=== PATIENT | male | born 2000 | race Two or more races ===

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

== ENCOUNTER 2020-02-18 20:06 | Emergency (ER) | payer SELFPAY ==
[~2020-02-18] VITALS: Ht 175.3 cm; Wt 113.1 kg
[~2020-02-18 20:06] MED LIST changes: +AMOX1TAB61 PO; +IBUP-1007 PO
[2020-02-18] MEDS ORDERED: ADENOSINE 6 MG/2 ML VIAL. IV ONE ×4 (20:12→20:45)
[2020-02-18] MEDS ORDERED: IV NORMAL SALINE 1000ML BAG 1,000 ML IV SCH (20:13)
[2020-02-18] MEDS ORDERED: dilTIAZem IV PUSH 25 MG/5 ML VIAL ONE (20:22)
--- NOTE | 2020-02-18 20:22 | PHYS DOC ---
Past Medical History Past Medical History: Anxiety Past Surgical History: Other Additional Past Surgical Histo: leasion reomoval Smoking Status: Former Smoker Alcohol Use: Occasionally Drug Use: Marijuana General Adult EDM: Chief Complaint: SVT HPI: HPI: Patient is a 19 year old male who presents via EMS with complaint of severe palpitations after taking hit of drugs. Patient states that he feels like he has a panic attack. He denies any actual chest pain. He denies any nausea or vomiting. Patient states that symptoms started approximately 20 minutes ago immediately after taking the head of the drugs that he had taken. [] Review of Systems: Review of Systems: Constitutional: Denies fever or chills. [] Respiratory: Denies cough or shortness of breath. [] Cardiovascular: Complains of palpitations. [] GI: Denies abdominal pain, nausea, vomiting, bloody stools or diarrhea. [] Neurologic: Denies headache, focal weakness or sensory changes. [] Psychiatric: Complains of anxiety. [] Heart Score: Risk Factors: Risk Factors: DM, Current or recent (<one month) smoker, HTN, HLP, family history of CAD, obesity. Risk Scores: Score 0 - 3: 2.5% MACE over next 6 weeks - Discharge Home Score 4 - 6: 20.3% MACE over next 6 weeks - Admit for Clinical Observation Score 7 - 10: 72.7% MACE over next 6 weeks - Early Invasive Strategies Current Medications: Current Medications Medications (Trade) Dose Ordered Sig/Bolivar Start Time Stop Time Status Last Admin Dose Admin Adenosine (Adenocard) 6 mg STK-MED ONCE 02/18/20 20:17 02/18/20 20:18 DC Sodium Chloride 1,000 ml @ 1,000 mls/hr Q1H 02/18/20 20:13 02/18/20 21:12 Allergies: Allergies: Allergies Coded Allergies Type Severity Reaction Last Updated Verified No Known Drug Allergies 12/06/13 No Physical Exam: PE: Constitutional: Well developed, well nourished, no acute distress, non-toxic appearance. [] HENT: Normocephalic, atraumatic, bilateral external ears normal, oropharynx moist, no oral exudates, nose normal. [] Eyes: PERRLA, EOMI, conjunctiva normal, no discharge. [] Neck: Normal range of motion, no tenderness, supple, no stridor. [] Cardiovascular:Heart rate regular rhythm, no murmur [] Lungs & Thorax: Bilateral breath sounds clear to auscultation [] Abdomen: Bowel sounds normal, soft, no tenderness, no masses, no pulsatile m asses. [] Skin: Warm, dry, no erythema, no rash. [] Back: No tenderness, no CVA tenderness. [] Extremities: No tenderness, no cyanosis, no clubbing, ROM intact, no edema. [] Neurologic: Alert and oriented X 3, normal motor function, normal sensory function, no focal deficits noted. [] Psychologic: Affect normal, judgement normal, mood normal. [] EKG: EKG: [] Radiology/Procedures: Radiology/Procedures: [] Course & Med Decision Making: Course & Med Decision Making Pertinent Labs and Imaging studies reviewed. (See chart for details) [] Dragon Disclaimer: Dragon Disclaimer: This electronic medical record was generated, in whole or in part, using a voice recognition dictation system. Departure Departure Impression: Primary Impression: Drug abuse Additional Impression: SVT (supraventricular tachycardia) Disposition: 01 HOME, SELF-CARE Condition: STABLE Referrals: NO PCP (PCP) Patient Instructions: Marijuana Abuse-Brief, Supraventricular Tachycardia Justicifation of Admission Dx: Justifications for Admission: Justification of Admission Dx: Comment: (Not applicable) MARY LOU WHITT Jr. DO Feb 18, 2020 20:21
[2020-02-18 20:24] LABS: BASO # 0.1 x10^3/uL (0.0-0.2); BASO % 1 % (0-3); EOS # 0.2 x10^3/uL (0.0-0.7); EOS % 2 % (0-3); HEMATOCRIT 48.2 % (39.0-53.0); LYMPH # 4.4 x10^3/uL (1.0-4.8); LYMPH % 35 % (24-48); MEAN CORPUSCULAR HEMOGLOBIN 30 pg (25-35); MEAN CORPUSCULAR HGB CONC 35 g/dL (31-37); MEAN CORPUSCULAR VOLUME 85 fL (79-100); MONO # 0.9 x10^3/uL (0.0-1.1); MONO % 7 % (0-9); NEUT # 7.1 x10^3/uL (1.8-7.7); NEUT % 56 % (31-73); PLATELET COUNT 318 x10^3/uL (140-400); RED BLOOD COUNT 5.65 x10^6/uL (4.30-5.70); RED CELL DISTRIBUTION WIDTH 12.9 % (11.5-14.5); WHITE BLOOD COUNT 12.8 x10^3/uL (4.0-11.0)
[2020-02-18 20:38] LABS: ALBUMIN 4.5 g/dL (3.4-5.0); ALBUMIN/GLOBULIN RATIO 1.2 (1.0-1.7); CALCIUM 9.3 mg/dL (8.5-10.1); CREATININE 1.4 mg/dL (0.7-1.3); GFR 65.3; MAGNESIUM 1.8 mg/dL (1.8-2.4); TOTAL BILIRUBIN 2.3 mg/dL (0.2-1.0); TOTAL PROTEIN 8.4 g/dL (6.4-8.2)
[2020-02-18 20:40] LABS: POTASSIUM 2.9 mmol/L (3.5-5.1)
[2020-02-18] MEDS ORDERED: dilTIAZem IV PUSH 25 MG/5 ML VIAL IVP ONE (21:00)
[2020-02-18 21:14] LABS: BILIRUBIN,URINE SMALL (NEG); CLARITY,URINE CLEAR; COLOR,URINE AMBER; NITRITE,URINE NEGATIVE (NEG); PH,URINE 5.5 (<5.0-8.0); PROTEIN,URINE 30 mg/dL (NEG-TRACE)
[2020-02-18 21:19] LABS: BARBITURATES NEG (NEG); BENZODIAZEPINES NEG (NEG); CANNABINOIDS POS (NEG); COCAINE NEG (NEG); METHADONE NEG (NEG); OPIATES NEG (NEG); PHENCYCLIDINE NEG (NEG)
[2020-02-18 21:20] LABS: AMPHETAMINE/METHAMPHETAMINE NEG (NEG); SQUAMOUS EPITHELIAL CELL,UR OCC /LPF
[2020-02-18 21:21] LABS: AMORPHOUS SEDIMENT,UR PRESENT /HPF; BACTERIA,URINE 0 /HPF (0-FEW); GRANULAR CASTS,URINE OCCASIONAL /HPF; HYALINE CASTS, URINE FEW /HPF; RBC,URINE 0 /HPF (0-2); WBC,URINE OCC /HPF (0-4)
[2020-02-18] MEDS ORDERED: POTASSIUM CHLORIDE 20 MEQ TABLET.ER. PO ONE (21:45)
[2020-02-18] MEDS ORDERED: IV NORMAL SALINE 1000ML BAG 1,000 ML IV ONE (22:30)
[2020-02-18 22:46] VITALS: BP 101/53
--- NOTE | 2020-02-19 06:22 | EKG ---
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
== END 2020-02-18 22:59 | disposition home or self-care (01) ==
LOC: ER 20:06
DX: I47.1 Supraventricular tachycardia (principal); R00.2 Palpitations; F41.9 Anxiety disorder, unspecified; F12.10 Cannabis abuse, uncomplicated; Z87.891 Personal history of nicotine dependence; Z98.890 Other specified postprocedural states
CPT/HCPCS: 36415; 80053; 80307; 81001; 83735; 85025; 93005; 99284; J7030

== ENCOUNTER 2020-04-24 21:25 | Emergency (ER) | payer SELFPAY ==
[~2020-04-24] VITALS: Ht 175.3 cm; Wt 113.6 kg
[2020-04-24 22:38] LABS: BASO % 0 % (0-3); EOS # 0.1 x10^3/uL (0.0-0.7); EOS % 1 % (0-3); HEMOGLOBIN 17.8 g/dL (13.0-17.5); LYMPH # 1.3 x10^3/uL (1.0-4.8); LYMPH % 11 % (24-48); MEAN CORPUSCULAR HEMOGLOBIN 30 pg (25-35); MEAN CORPUSCULAR HGB CONC 36 g/dL (31-37); MEAN CORPUSCULAR VOLUME 85 fL (79-100); MONO # 0.7 x10^3/uL (0.0-1.1); MONO % 6 % (0-9); NEUT # 9.2 x10^3/uL (1.8-7.7); NEUT % 81 % (31-73); PLATELET COUNT 264 x10^3/uL (140-400); RED CELL DISTRIBUTION WIDTH 13.1 % (11.5-14.5); WHITE BLOOD COUNT 11.3 x10^3/uL (4.0-11.0)
[2020-04-24 22:46] LABS: CALCIUM 9.9 mg/dL (8.5-10.1); CREATININE 0.9 mg/dL (0.7-1.3); GFR 107.6; POTASSIUM 3.6 mmol/L (3.5-5.1)
--- NOTE | 2020-04-24 23:37 | PHYS DOC ---
Past Medical History Past Medical History: Anxiety Past Surgical History: Other Additional Past Surgical Histo: leasion reomoval Smoking Status: Former Smoker Alcohol Use: Occasionally Drug Use: Marijuana General Adult EDM: Chief Complaint: ANXIETY/PANIC ATTACK HPI: HPI: Patient is a 20-year-old male who presents to the emergency room with anxiety. Patient states that he has had some thoughts of hopelessness but denies any suicidal ideations. He is never had a plan to hurt himself. He states that his mind races and sometimes he believes he is going to of a stroke like his mother suddenly. He denies any numbness, weakness, difficulty walking. Review of Systems: Review of Systems: General: Denies fever, chills, sweats, fatigue Eyes: Denies drainage, blurred vision, eye redness HENT: Denies rhinorrhea, sore throat, earache Respiratory: Denies cough, shortness of breath, wheezing Cardiac: Denies edema, palpitations, chest pain GI: Denies abdominal pain, Nausea, vomiting MSK: Denies back pain, neck pain Skin: Denies rash, jaundice Neuro: Denies headache, dizziness Psychiatric: Denies SI/HI reports anxiety Heart Score: Risk Factors: Risk Factors: DM, Current or recent (<one month) smoker, HTN, HLP, family history of CAD, obesity. Risk Scores: Score 0 - 3: 2.5% MACE over next 6 weeks - Discharge Home Score 4 - 6: 20.3% MACE over next 6 weeks - Admit for Clinical Observation Score 7 - 10: 72.7% MACE over next 6 weeks - Early Invasive Strategies Allergies: Allergies: Allergies Coded Allergies Type Severity Reaction Last Updated Verified No Known Drug Allergies 12/06/13 No Physical Exam: PE: General: Awake, alert, NAD. Well Nourished, well hydrated. Cooperative HEENT: Atraumatic, EOMI, PERRL, airway patent, moist oral mucosa Neck: Supple, trachea midline Respiratory: CTA bilaterally, normal effort, no wheezing/crackles CV: RRR, no murmur, cap refill <2 GI: Soft, nondistended, nontender, no masses MSK: No obvious deformities Skin: Warm, dry, intact Neuro: A&O x3, speech NL, sensory and motor grossly intact, no focal deficits Psych: Anxiety, not suicidal or homicidal Current Patient Data: Labs: Laboratory Tests Test 04/24/20 22:28 White Blood Count 11.3 x10^3/uL (4.0-11.0) H Red Blood Count 5.90 x10^6/uL (4.30-5.70) H Hemoglobin 17.8 g/dL (13.0-17.5) H Hematocrit 50.0 % (39.0-53.0) Mean Corpuscular Volume 85 fL (79-100) Mean Corpuscular Hemoglobin 30 pg (25-35) Mean Corpuscular Hemoglobin Concent 36 g/dL (31-37) Red Cell Distribution Width 13.1 % (11.5-14.5) Platelet Count 264 x10^3/uL (140-400) Neutrophils (%) (Auto) 81 % (31-73) H Lymphocytes (%) (Auto) 11 % (24-48) L Monocytes (%) (Auto) 6 % (0-9) Eosinophils (%) (Auto) 1 % (0-3) Basophils (%) (Auto) 0 % (0-3) Neutrophils # (Auto) 9.2 x10^3/uL (1.8-7.7) H Lymphocytes # (Auto) 1.3 x10^3/uL (1.0-4.8) Monocytes # (Auto) 0.7 x10^3/uL (0.0-1.1) Eosinophils # (Auto) 0.1 x10^3/uL (0.0-0.7) Basophils # (Auto) 0.0 x10^3/uL (0.0-0.2) Sodium Level 138 mmol/L (136-145) Potassium Level 3.6 mmol/L (3.5-5.1) Chloride Level 103 mmol/L (98-107) Carbon Dioxide Level 28 mmol/L (21-32) Anion Gap 7 (6-14) Blood Urea Nitrogen 12 mg/dL (8-26) Creatinine 0.9 mg/dL (0.7-1.3) Estimated GFR (Cockcroft-Gault) 107.6 Glucose Level 121 mg/dL (70-99) H Calcium Level 9.9 mg/dL (8.5-10.1) Laboratory Tests 04/24/20 22:28 Laboratory Tests 04/24/20 22:28 EKG: EKG: [] Radiology/Procedures: Radiology/Procedures: [] Course & Med Decision Making: Course & Med Decision Making Pertinent Labs and Imaging studies reviewed. (See chart for details) Patient is 20-year-old male who presents the emergency room with anxiety. Pat team was called and evaluated the patient. They gave him outpatient resources. Patient is stable at this time. He will be given hydroxyzine. He is not suicidal or homicidal. He does not appear to be a harm to himself or others. Patient's test results and vitals while in the ED were fully reviewed and disc ussed with the patient. Patient is stable and at this time does not need admission to the hospital. We have discussed strict return precautions and the importance of following up with their Primary Care Physician. Patient stated understanding and was given an opportunity to ask any questions. Patient is in agreement with plan. Dragon Disclaimer: Dragon Disclaimer: This electronic medical record was generated, in whole or in part, using a voice recognition dictation system. Departure Departure Impression: Primary Impression: Anxiety Disposition: 01 HOME, SELF-CARE Condition: STABLE Referrals: NO PCP (PCP) Patient Instructions: Anxiety and Panic Attacks Justicifation of Admission Dx: Justifications for Admission: Justification of Admission Dx: No HEMAL PERRIN MD Apr 24, 2020 23:37
[2020-04-25] VITALS: BP 155/97
[2020-04-25] MEDS ORDERED: hydrOXYzine 25 MG TABLET PO PRN (00:15)
== END 2020-04-25 00:35 | disposition home or self-care (01) ==
LOC: ER 21:25
DX: F41.9 Anxiety disorder, unspecified (principal); F12.90 Cannabis use, unspecified, uncomplicated; Z87.891 Personal history of nicotine dependence; Z98.890 Other specified postprocedural states
CPT/HCPCS: 36415; 80048; 85025; 99285